=== PATIENT | female | born 1970 | race Caucasian/White ===

== ENCOUNTER 2017-01-18 17:31 | Emergency (ER) | payer MEDICARE, OTHER ==
[~2017-01-18 17:31] MED LIST: ASPIRIN CHEWABL81 MG PO; COMPAZINE10 MG PO; FLONASE ALLER15.8 ML; GLUCOPHAGE1000 MG PO; IBUPROFEN400 MG PO; KEPPRA500 MG PO; LEVAQUIN750 MG PO; METRONIDAZOLE500 MG PO; NORVASC10 MG PO; PERCOCET 5/3251 TAB PO; PROAIR HFA8.5 GM INH; PROBIOTIC1 EAC1 PO; PROTONIX40 MG PO; TRIAMTERENE/HCT1 TAB PO; VALIUM5 MG PO; ZOLOFT50 M1 PO
[2017-01-18 18:00] LABS: BASOPHIL 0.4 % (0-2); EOSINOPHIL 1.2 % (0-5); HCT 40.5 % (37.0-47.0); HGB 13.9 g/dl (12.5-16.0); LYMPHOCYTE 12.9 % (15-48); MCH 30.3 pg (25.0-31.0); MCHC 34.3 g/dL (32.0-36.0); MCV 88.4 fL (78.0-100.0); MONOCYTE 6.6 % (0-12); MPV 9.5 fL (6.0-9.5); NEUTROPHIL 78.9 % (41-80); PLT 218 K/uL (150-400); RBC 4.58 M/uL (4.20-5.40); RDW 13.1 % (11.5-14.0); WBC 9.1 K/uL (4.0-10.5)
[2017-01-18 18:13] LABS: BILIRUBIN NEGATIVE (NEGATIVE); BLOOD TRACE-INTACT Ery/uL (NEGATIVE); CLARITY HAZY (CLEAR); COLOR YELLOW (YELLOW); GLUCOSE (U) NORMAL (NORMAL); KETONE (U) NEGATIVE (NEGATIVE); LEUKOCYTES 2+ Leu/uL (NEGATIVE); NITRITE NEGATIVE (NEGATIVE); PROTEIN NEGATIVE (NEGATIVE); SPECIFIC GRAVITY 1.015 (1.001-1.030); pH 6.5 (5.0-9.0)
[2017-01-18 18:17] LABS: ALBUMIN 4.1 g/dL (3.5-5.0); BILIRUBIN - TOTAL 0.5 mg/dL (0.1-1.0); CREATININE 0.6 mg/dL (0.5-1.0); POTASSIUM 3.8 mmol/L (3.5-5.1); TOTAL PROTEIN 7.1 g/dL (6.4-8.3)
[2017-01-18 18:21] LABS: BACTERIA 3+; URINARY WBC 20-50
[2017-01-18 18:22] LABS: MUCOUS TRACE
== END 2017-01-18 19:34 | disposition home or self-care (01) ==
LOC: FER 17:31
PROVIDERS: Nurse Practitioner
DX: N30.01 Acute cystitis with hematuria (principal); R19.7 Diarrhea, unspecified; Z88.2 Allergy status to sulfonamides; Z88.5 Allergy status to narcotic agent; Z88.6 Allergy status to analgesic agent
CPT/HCPCS: 36415; 80053; 81001; 82150; 83690; 84484; 85025; 87076; 87088; 87186; 93005; J1885; J2765

== ENCOUNTER 2017-02-10 14:04 | Emergency (ER) | payer MEDICARE, OTHER ==
[2017-02-10 15:49] LABS: BASOPHIL 0.5 % (0-2); EOSINOPHIL 2.8 % (0-5); HCT 39.5 % (37.0-47.0); HGB 13.5 g/dl (12.5-16.0); LYMPHOCYTE 32.2 % (15-48); MCH 30.3 pg (25.0-31.0); MCHC 34.2 g/dL (32.0-36.0); MCV 88.6 fL (78.0-100.0); MONOCYTE 9.7 % (0-12); NEUTROPHIL 54.8 % (41-80); PLT 226 K/uL (150-400); RBC 4.46 M/uL (4.20-5.40); RDW 13.2 % (11.5-14.0)
[2017-02-10 16:01] LABS: BILIRUBIN NEGATIVE (NEGATIVE); BLOOD NEGATIVE Ery/uL (NEGATIVE); CLARITY CLEAR (CLEAR); COLOR YELLOW (YELLOW); GLUCOSE (U) NORMAL (NORMAL); KETONE (U) NEGATIVE (NEGATIVE); LEUKOCYTES NEGATIVE Leu/uL (NEGATIVE); NITRITE NEGATIVE (NEGATIVE); PROTEIN NEGATIVE (NEGATIVE); UROBILINOGEN 0.2 mg/dL (0.2-1.0)
[2017-02-10 16:10] LABS: BILIRUBIN - TOTAL 0.3 mg/dL (0.1-1.0); CREATININE 0.6 mg/dL (0.5-1.0); GLOBULIN (CALCULATION) 2.6 g/dL (2.2-4.2); POTASSIUM 4.1 mmol/L (3.5-5.1); TOTAL PROTEIN 6.6 g/dL (6.4-8.3)
[2017-02-10 16:13] LABS: AMPHETAMINES NEGATIVE (NEGATIVE); BARBITURATES NEGATIVE (NEGATIVE); BENZODIAZEPINES POSITIVE (NEGATIVE); COCAINE NEGATIVE (NEGATIVE); MARIJUANA (THC) NEGATIVE (NEGATIVE); METHADONE NEGATIVE (NEGATIVE); TRICYCLIC ANTIDEPRESSANT NEGATIVE (NEGATIVE)
== END 2017-02-10 17:12 | disposition home or self-care (01) ==
LOC: FER 14:04
PROVIDERS: Internal Medicine
DX: G40.909 Epilepsy, unspecified, not intractable, without status epilepticus (principal); H81.10 Benign paroxysmal vertigo, unspecified ear; E11.43 Type 2 diabetes mellitus with diabetic autonomic (poly)neuropathy; K31.84 Gastroparesis; Z88.2 Allergy status to sulfonamides; Z88.5 Allergy status to narcotic agent; Z88.6 Allergy status to analgesic agent
CPT/HCPCS: 36415; 80053; 80305; 81003; 85025; 93005; J1885

== ENCOUNTER 2017-04-25 14:09 | Emergency (ER) | payer MEDICARE, OTHER ==
[2017-04-25 15:33] LABS: BASOPHIL 0.6 % (0-2); EOSINOPHIL 2.4 % (0-5); HCT 37.4 % (37.0-47.0); HGB 12.9 g/dl (12.5-16.0); MCH 30.6 pg (25.0-31.0); MCHC 34.5 g/dL (32.0-36.0); MCV 88.8 fL (78.0-100.0); MONOCYTE 9.4 % (0-12); MPV 10.1 fL (6.0-9.5); NEUTROPHIL 52.6 % (41-80); PLT 198 K/uL (150-400); RBC 4.21 M/uL (4.20-5.40); RDW 12.4 % (11.5-14.0); WBC 7.8 K/uL (4.0-10.5)
[2017-04-25 15:51] LABS: CREATININE 0.7 mg/dL (0.5-1.0); POTASSIUM 3.7 mmol/L (3.5-5.1)
== END 2017-04-25 17:15 | disposition home or self-care (01) ==
LOC: FER 14:09
PROVIDERS: Internal Medicine
DX: G40.909 Epilepsy, unspecified, not intractable, without status epilepticus (principal); I10 Essential (primary) hypertension; E11.43 Type 2 diabetes mellitus with diabetic autonomic (poly)neuropathy; K31.84 Gastroparesis; Z88.2 Allergy status to sulfonamides; Z88.5 Allergy status to narcotic agent; Z88.6 Allergy status to analgesic agent; Z79.899 Other long term (current) drug therapy; Z79.84 Long term (current) use of oral hypoglycemic drugs
CPT/HCPCS: 36415; 80048; 80299; 85025; J2765